=== PATIENT | female | born 1975 | race Caucasian/White ===

== ENCOUNTER 2019-11-02 20:29 | Emergency (ER) | payer MEDICAID ==
[~2019-11-02] VITALS: Ht 149.9 cm; Wt 86.2 kg
[2019-11-02 20:41] VITALS: Ht 149.9 cm; Wt 86.2 kg
[2019-11-02 21:41] LABS: BASOPHIL % 0.5 % (0-2); PLATELET COUNT 372 x10^3mcL (130-400)
[2019-11-02 21:53] LABS: RED CELL DISTRIBUTION WIDTH 14.8 % (11.5-14.5)
[2019-11-02 22:05] LABS: microscopic required? YES; urine erythrocyte 3+ (NEGATIVE)
[2019-11-02 22:06] LABS: CALCIUM 9.3 mg/dL (8.5-10.1); CARBON DIOXIDE 26.2 mmol/L (21-32); CREATININE SERUM 1.1 mg/dL (0.6-1.0); POTASSIUM SERUM 4.8 mmol/L (3.5-5.1)
[2019-11-02 22:10] LABS: ALBUMIN 3.9 g/dL (3.4-5.0); BILIRUBIN TOTAL 0.3 mg/dL (0.20-1.00)
[2019-11-02 22:22] LABS: TOTAL PROTEIN, SERUM 8.3 g/dL (6.4-8.2)
[2019-11-03 00:05] VITALS: BP 136/77
== END 2019-11-03 00:05 | disposition home or self-care (01) ==
LOC: ED 20:29
PROVIDERS: Emergency Medicine
DX: N20.1 Calculus of ureter (principal); E11.9 Type 2 diabetes mellitus without complications
CPT/HCPCS: J1885; J2270; J2405; J7030